=== PATIENT | female | born 1965 | race Two or more races ===

== ENCOUNTER → 2024-07-21 | Outpatient (CLI) | payer MEDICAID, SELFPAY ==
--- NOTE | 2024-07-21 14:30 | XR_ITS ---
Examination: Breast ultrasound, unilateral, left complete Date and time of exam: July 21, 2024 1427 hours INDICATIONS: Mammogram May 28, 2024 10 mm nodule 12:00 position left breast Technique: Real-time pope scale ultrasonographic imaging performed left breast including all 4 quadrants as well as nipple retroareolar and axillary region. Findings: No cystic or solid mass IMPRESSION: BI-RADS Category 1: Negative study
== END | disposition home or self-care (01) ==
PROVIDERS: PCP Physician Assistant; Referring Provider Physician Assistant; Visit Provider Physician Assistant
DX: R92.8 Other abnormal and inconclusive findings on diagnostic imaging of breast (principal)
CPT/HCPCS: 76641

== ENCOUNTER 2024-07-22 21:31 | Emergency (ER) | payer MEDICAID, SELFPAY ==
[2024-07-22 21:39] VITALS: BP 166/104; PULSE 76; RESP 18; TEMP 36.7; O2SAT 96; BMI 31.8
--- NOTE | 2024-07-22 21:45 | XR_ITS ---
Examination: CT brain head without contrast. 2-D sagittal coronal reconstructions Date and time of exam:July 22, 2024 2158 hrs. Indications: Headaches today Comparison: 03/18/2021 CTDI: vol (mGy):50.2 DLP: (mGycm):1023 Technique: Multiple CT axial sections of the brain have been obtained, 5 mm slice thickness. Contrast has not been administered. 2-D sagittal, coronal reconstructions have been obtained Low dose protocols were performed. One or more of the following dose reduction techniques were used; automated exposure control, adjustment of the mA and/or KV according to patient size, use of iterative reconstruction technique. Findings: No significant ventricular enlargement. Intra-axial or extra-axial hemorrhage density is not seen. No mass effect or midline shift Basal cisterns are not remarkable. Fourth ventricle is midline. Cranial vault intact. Impression: Negative for acute hemorrhage, mass effect or midline shift
--- NOTE | 2024-07-22 21:45 | XR_ITS ---
Examination: CT cervical spine without contrast 2-D sagittal reconstructions 2-D coronal reconstructions 3-D reconstructions. Exam date and time:July 22, 2024 10:00 PM Indications: Onset neck pain today Comparison: 03/18/2021 CTDI:vol (mGy) 14.9 DLP: (mGycm) 359 Technique: Multiple 2 mm axial sections of the cervical spine have been obtained. The coronal and sagittal reconstructions have been obtained. 3-D reconstructions have been obtained. Low dose protocols were performed. One or more of the following dose reduction techniques were used; automated exposure control, adjustment of the mA and/or KV according to patient size, use of iterative reconstruction technique. Findings: Axial sections demonstrate intact base of the skull. C1 exhibit satisfactory relationship to the odontoid. No acute cervical vertebral body fracture seen. Alignment posterior spinous processes satisfactory. Impression: No acute cervical fracture. If neck pain persists, consider MRI cervical spine without contrast follow-up
--- NOTE | 2024-07-22 21:46 | PD.EDRME ---
Rapid Medical Screening Exam RME Arrival date/time: 07/22/24 21:31 59-year-old female presents emergency department complaining of headache after heavy metal fell on top of her head 3 days ago. Patient denies LOC at the time of injury. Chief Complaint: Headache Time Seen by Provider: 07/22/24 21:36 Vital signs: Vital Signs Temperature 98.1 F 07/22/24 21:39 Pulse Rate 76 07/22/24 21:39 Respiratory Rate 18 07/22/24 21:39 Blood Pressure 166/104 H 07/22/24 21:39 Pulse Oximetry (%) 96 07/22/24 21:39 Oxygen Delivery Method Room Air 07/22/24 21:39 Vital signs reviewed by provider: Yes
[2024-07-22 22:14] VITALS: BP 166/104; PULSE 76
[2024-07-22] MEDS: hydrALAZINE HCL 25 MG TABLET PO (22:14)
[2024-07-22] MEDS: ACETAMINOPHEN 500 MG TABLET 1000 MG PO (22:14)
--- NOTE | 2024-07-22 23:02 | PD.EDHA ---
ED Headache RME/HPI General Chief Complaint: Headache Stated Complaint: Headache Time Seen by Provider: 07/22/24 21:36 Source: patient Arrival date/time: 07/22/24 21:31 59-year-old female presents emergency department complaining of headache after heavy metal fell on top of her head 3 days ago. Patient denies LOC at the time of injury. Mode of arrival: ambulatory Limitations: no limitations RME / HPI RME / HPI Narrative: 07/22/24 21:31 59-year-old female presents emergency department complaining of headache after heavy metal fell on top of her head 3 days ago. Patient denies LOC at the time of injury. Related Data Previous Rx's ?Medication ?Instructions ?Recorded tramadol 50 mg tablet 50 mg PO TID PRN pain #30 tabs 03/18/21 ibuprofen 600 mg tablet 600 mg PO Q8H PRN pain #20 tabs 07/22/24 Allergies Allergy/AdvReac Type Severity Reaction Status Date / Time No Known Allergies Allergy Verified 09/30/18 11:42 Review of Systems Review of Systems Systems Reviewed: All systems reviewed, normal except as documented Constitutional Constitutional: Reports system reviewed and no additional complaints, except as documented, Denies body ache(s), Denies chills, Denies fever(s) and Reports headache(s) Eyes Eyes: Reports system reviewed and no additional complaints, except as documented and Denies change in vision ENT Ears, Nose, Mouth, and Throat: Reports system reviewed and no additional complaints, except as documented, Denies disequilibrium, Denies dizziness, Reports headache(s), Denies sore throat and Denies vertigo Cardiovascular Cardiovascular: Reports system reviewed and no additional complaints, except as documented, Denies chest pain and Denies dyspnea Respiratory Respiratory: Reports system reviewed and no additional complaints, except as documented, Denies chest congestion, Denies cough and Denies dyspnea Gastrointestinal Gastrointestinal: Reports system reviewed and no additional complaints, except as documented, Denies abdominal pain, Denies nausea and Denies vomiting Musculoskeletal Musculoskeletal: Reports system reviewed and no additional complaints, except as documented, Denies abnormal gait and Denies arthralgias Integumentary/Breasts Skin/Breast: Reports system reviewed and no additional complaints, except as documented, Denies erythema, Denies rash and Denies wounds Neurologic Neurologic: Reports system reviewed and no additional complaints, except as documented, Denies abnormal gait, Denies disequilibrium, Denies dizziness, Reports headache(s) and Denies vertigo Past Medical History Past Medical History NEUROLOGIC: Negative Neurological Disorders or Seizures CARDIAC: Negative Cardiac Disorders or Congestive Heart Failure RESPIRATORY: Negative Chronic Obstructive Pulmonary Disease (COPD) GASTROINTESTINAL: Negative Gastrointestinal Disorders GENITOURINARY: Negative Genitourinary Disorders or Renal Disease MUSCULOSKELETAL: Positive Musculoskeletal Disorders and Arthritis ENDOCRINE: Negative Endocrine Disorders, Diabetes Mellitus Type 1 or Diabetes Mellitus Type 2 HEMATOLOGIC: Negative Blood Disorders OTHER HISTORY: Positive Chicken Pox and Measles; Negative Autoimmune Disease, Blood Transfusions or Anesthesia Reactions Surgical History SURGICAL: Positive Hysterectomy (TOTAL VAGINAL) Social History SMOKING STATUS: Former smoker ED Exam General Limitations: Present no limitations General appearance: Present alert and in no apparent distress Head Head exam: Present atraumatic Eye Eye exam: Present normal appearance, PERRL and EOMI ENT ENT exam: Present normal exam, normal oropharynx and mucous membranes moist Neck Neck exam: Present normal inspection, full ROM and trachea midline Chest Chest inspection: Present normal inspection and symmetric chest wall rise Respiratory Respiratory exam: Present normal lung sounds bilaterally Cardiovascular Cardiovascular exam: Present regular rate, normal rhythm and normal heart sounds Abdominal Exam Abdominal exam: Present soft and normal bowel sounds Extremities Exam Extremities exam: Present normal inspection and full ROM Back Exam Back exam: Present normal inspection and full ROM Neurological Exam Neurological exam: Present alert, oriented X3 and CN II-XII intact Psychiatric Psychiatric exam: Present normal affect and normal mood Skin Skin exam: Present warm, dry, intact and normal color Course Quality Measures none Orders Category Date Time Status CT cervical spine wo con Stat Exams 07/22/24 21:[address] head/brain wo con Stat Exams 07/22/24 21:45 Completed Acetaminophen Tab [Tylenol ES Tab] Med 07/22/24 21:46 Discontinued 1,000 mg PO X1 ONE hydrALAZINE HCL [Apresoline] Med 07/22/24 21:45 Discontinued 25 mg PO X1 ONE Vital Signs Vital signs: Vital Signs Temperature 98.1 F 07/22/24 21:39 Pulse Rate 76 07/22/24 21:39 Respiratory Rate 18 07/22/24 21:39 Blood Pressure 166/104 H 07/22/24 21:39 Pulse Oximetry (%) 96 07/22/24 21:39 Oxygen Delivery Method Room Air 07/22/24 21:39 96% room air within normal limits Headache MDM Narrative MDM Narrative:: 59-year-old female presents emergency department complaining of headache after heavy metal fell on top of her head 3 days ago. Patient denies LOC at the time of injury. CT scans were unremarkable. Patient reported significant improvement in symptoms after given pain medication. Patient GCS 15 with steady gait. Patient data External records reviewed:: [facility] previous records Clinical information provided by:: patient Social determinants that could affect healthcare access:: none Patient has the following chronic illnesses:: See chart How is presenting disease/condition affected by chronic disease/condition?: uneffected by Evaluation data The following diagnostics were reviewed and interpreted by me:: radiology exam(s) Lab and/or radiology exams considered but not ordered:: Ordered Interpretation Summary: Interpreted by me Medications / Prescriptions Medications or Prescriptions considered but not ordered:: Ordered Medication administrations:: Medication Administration History Discontinued Medications Acetaminophen (Acetaminophen 500 Mg Tablet) 1,000 mg PO X1 ONE Stop: 07/22/24 21:47 Last Admin: 07/22/24 22:14 Dose: 1,000 mg Documented By: OA Hydralazine HCl (Hydralazine Hcl 25 Mg Tablet) 25 mg PO X1 ONE Stop: 07/22/24 21:46 Last Admin: 07/22/24 22:14 Dose: 25 mg Documented By: OA Given Consultations Consultation(s) initiated? (list below): No Diagnosis Differential diagnosis headache: migraine, tension headache, subarachnoid hemorrhage, headache, meningitis, sinusitis and postconcussion syndrome Most likely diagnosis given after review of the tests above:: Headache Admission Indicated Admission indicated?: not indicated Admission Request Was there a request for admission?: No Disposition Plan Disposition Plan: Discharge Discharge Attestation Discharge Attestation: The patient and all family members were given an opportunity to ask questions and understood the discharge instructions. Discharge instructions specifically effects, indications for sooner follow up or return to the emergency department, and the expected course of current diagnosis. Patient condition: Stable Discharge Plan Plan Patient Disposition: HOME (Self Care) Disposition Comment: Stable Prescriptions/Referrals Prescriptions/Med Rec: New ibuprofen 600 mg tablet 600 mg PO Q8H PRN (Reason: pain) Qty: 20 0RF No Action tramadol 50 mg tablet 50 mg PO TID PRN (Reason: pain) Qty: 30 0RF Problem List Clinical Impression: Headache Patient/Caregiver Discharge Instructions Discharge Activity: activity as tolerated Education Materials: Self-Care for Headaches Additional Instructions: Drink plenty of fluids and stay hydrated. Take ibuprofen or Tylenol as needed for pain. Follow-up with primary care provider in 2 to 3 days. Return to emergency department for any worsening symptoms or as needed. Print Language: Turkish Stand Alone Forms: Angela Award Info., Patient Portal Info Letter PA/SHAREPOINT DESIGNER DEVELOPER Supervising Physician PA/SHAREPOINT DESIGNER DEVELOPER Supervising Physician: Dr. Pierce
== END 2024-07-23 00:21 | disposition home or self-care (01) ==
LOC: SERX 23:13
PROVIDERS: Emergency Provider Emergency Medicine
DX: R51.9 Headache, unspecified (principal)
CPT/HCPCS: 70450; 72125; 99284; A9270

== ENCOUNTER → 2024-08-14 | Outpatient (CLI) | payer MEDICAID, SELFPAY ==
--- NOTE | 2024-08-14 10:30 | XR_ITS ---
Examination: Diagnostic digital mammography, unilateral, left Computer aided detection 3-D breast Tomosynthesis, unilateral Date and time of exam: August 14, 2024 1135 hours INDICATIONS: Mammogram May 28, 2024 12 mm nodule 12:00 position left breast Technique: Nonmagnified MLO, CC views of the left breast have been obtained, reconstructed from 3-D Tomosynthesis images. R2 computer aided detection program utilized for evaluation of suspicious masses and/or abnormal calcifications. 3-D Tomosynthesis images obtained. Findings: Scattered areas of fibroglandular density. No suspicious nodule is confirmed on the spot compression views Ultrasound examination July 21, 2024 does not demonstrate solid nodule left breast Impression: BI-RADS category 2: Benign findings Return to yearly follow-up mammography
== END | disposition home or self-care (01) ==
LOC: CDIM 11:21
PROVIDERS: PCP Physician Assistant; Referring Provider Obstetrics & Gynecology; Visit Provider Obstetrics & Gynecology
DX: R92.322 Mammographic fibroglandular density, left breast (principal)
CPT/HCPCS: 77061; 77065; G0279